=== PATIENT | female | born 1980 | race American Indian/Alaskan Native ===

== ENCOUNTER 2017-01-16 17:39 | Inpatient (IN) | payer OTHER, MEDICAID ==
[2017-01-16] MEDS ORDERED: POLYCILLIN/NS 2 GM/100 ML 2 GM/100 ML BAG IV ONE (18:34)
[2017-01-16] MEDS ORDERED: LACTATED RINGERS 1,000 ML IV SCH (19:00)
[2017-01-16] MEDS ORDERED: NARCAN 0.4 MG/1 ML IV PRN (19:29)
[2017-01-16] MEDS ORDERED: BRETHINE SUB-Q PRN (19:29)
[2017-01-16] MEDS ORDERED: BRETHINE IVP PRN (19:29)
[2017-01-16] MEDS ORDERED: MINERAL OIL PO PRN (19:29)
[2017-01-16] MEDS ORDERED: ZOFRAN IV PRN (19:29)
[2017-01-16] MEDS ORDERED: XYLOCAINE 2% INFILTRATI ONE (19:29)
[2017-01-16] MEDS ORDERED: ePHEDrine SULFATE IV PRN (19:29)
--- NOTE | 2017-01-16 19:55 | History and Physical Report ---
History of Present Illness Date of examination: 01/16/17 Date of admission: 01/16/17 19:42 Chief complaint: srom clear fluid at 1500 History of present illness: 36 yo at 39 weeks was initially scheduled for a IOL tonight at 1999. She stated that she had leaking at 1500. She came to triage and was noted to be grossly ruptured. 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 reported by triage nurse GDMA1 on glyburide 2.5mg QHS Asthma-stable ( no hemabate) GBS + will begin amp 2g for prophylaxis AMA- under care in conjunction with [facility] Smoker- s/p counseling labs O+ Antibody + H/H 12.3/38.4 Rubella Imm Pap nl 10/27 RPR NR Hep neg HIV neg PLT 506 HSV2 positive CF neg US single viable IUP 7 weeks EDC was changed 01/21/17 quad neg 1hr glucose 170 3hr 86,200,163,110 H/H 10.6/32.9 PLt 402 HIV/RPR neg/neg clam neg rocky neg GBS Positive Past History Past Medical History: asthma, high cholesterol Past Surgical History: no surgical history [employer] [employer] History: herpes Family/Genetic History: diabetes (Father), heart disease (Grandmotehr maternal Grandmother paternal), hypertension (Grandmother paternal), cancer (breast Grandmother paternal), other (hypercholesterolemia Grandmother paternal) Social history: smoking - Obstetrical History Expected Date of Delivery: 01/21/17 Actual Gestation: 39 Week(s) 3 Day(s) : 1 Para: 0 Hx # Term Pregnancies: 0 Number of Pregnancies: 0 Spontaneous Abortions: 0 Induced : 0 Number of Living Children: 0 Medications and Allergies Allergies Allergy/AdvReac Type Severity Reaction Status Date / Time No Known Allergies Allergy Verified 01/16/17 17:54 Home Medications Medication Instructions Recorded Confirmed Last Taken Type Vit No.87/Iron/FA/Dha 1 tab PO DAILY 01/16/17 01/16/17 01/16/17 09:00 History [Prenate Mini Softgel] 1 glyBURIDE [Glyburide] 3 tab PO HS 01/16/17 01/16/17 01/15/17 21:00 History 1 Active Meds: Active Medications Ephedrine Sulfate (Ephedrine Sulfate) 10 mg IV Q2M PRN PRN Reason: Hypotension Stop: 01/16/17 19:34 Fentanyl (Sublimaze) 100 mcg IV Q2H PRN PRN Reason: Labor Pain Ampicillin Sodium (Polycillin/Ns 1 Gm/50 Ml) 1 gm in 50 mls @ 100 mls/hr IV Q4HR [facility]ST[place]NA PRN Reason: Protocol Lactated Ringer's (Lactated Ringers) 1,000 mls @ 125 mls/hr IV DIRECT [facility] Oxytocin/Sodium Chloride (Pitocin/Ns 30 Unit/500ml) 30 units in 500 mls @ 2 mls /hr IV TITR [facility]NA PRN Reason: Protocol Lactated Ringer's (Lactated Ringers) 1,000 mls @ 125 mls/hr IV DIRECT [place] Oxytocin/Sodium Chloride (Pitocin/Ns 20 Unit/1000ml Drip) 20 units in 1,000 mls @ 125 mls/hr IV DIRECT [place] Oxytocin/Sodium Chloride (Pitocin/Ns 30 Unit/500ml) 30 units in 500 mls @ 1 mls /hr IV TITR [facility]RISTIANA; 1 MILLIUNITS/MIN PRN Reason: Protocol Oxytocin/Sodium Chloride (Pitocin/Ns 30 Unit/500ml) 30 units in 500 mls @ 0 mls /hr IV TITR CHRISTIANA; As Directed PRN Reason: Protocol Lidocaine (Xylocaine 2%) 20 ml INFILTRATI ONCE ONE Stop: 01/16/17 19:30 Mineral Oil (Mineral Oil) 30 ml PO QHS PRN PRN Reason: Constipation Naloxone HCl (Narcan 0.4 Mg/1 Ml) 0.1 mg IV Q2MIN PRN PRN Reason: Res Rate </= 8 or 02 SAT < 92% Ondansetron HCl (Zofran) 4 mg IV Q8H PRN PRN Reason: Nausea And Vomiting Terbutaline Sulfate (Brethine) 0.25 mg SUB-Q ONCE PRN PRN Reason: Hyperstimulation/Hypertonicity Stop: 01/16/17 19:30 Terbutaline Sulfate (Brethine) 0.25 mg IVP ONCE PRN PRN Reason: Hyperstimulation/Hypertonicity Stop: 01/16/17 19:30 Review of Systems All systems: negative Constitutional: weight gain Eyes: deferred Ears, nose, mouth and throat: deferred Breasts: deferred Genitourinary: normal appearance, vaginal bleeding, leakage of fluid, no genital sores Rectal Exam: deferred Integumentary: deferred - Vital Signs Vital signs: Vital Signs Pulse BP 100 H 125/73 01/16/17 18:13 01/16/17 18:13 Temp Pulse Resp BP Pulse Ox 98.3 F 100 H 20 125/73 01/16/17 18:30 01/16/17 18:13 01/16/17 18:30 01/16/17 18:13 - Physical Exam Breasts: Positive: deferred Cardiovascular: Regular rate, Normal S1, Normal S2 Lungs: Positive: Clear to auscultation, Normal air movement Abdomen: Positive: normal appearance, soft, normal bowel sounds Genitourinary (Female): Positive: normal external genitalia, normal perenium Vagina: Positive: normal moisture Cervix: Negative: lesion Uterus: Positive: enlarged, normal contour Adnexa: both: normal Anus/Rectum: Positive: normal perianal skin, heme negative Extremities: Positive: normal Deep Tendon Reflex Grade: Normal +2 - Obstetrical FHR: category 1 Uterine Contraction Monitor Mode: External Cervical Dilatation: 1 Uterine Contraction Pattern: Regular Uterine Tone Measurement Phase: Contraction Uterine Contraction Intensity: Mild Results Result Diagrams: 01/16/17 20:44 All other labs normal. Assessment and Plan HD#1 SROM, term, GDMA1 --admit to labor and delivery ---initiate abx GBS + ( ampicillin) ---confirm presentation with US ---fs regularly --ivf started --initial labs --initiate pitocicn IOL --expect vaginal delivery continue glybruide
[2017-01-16] MEDS ORDERED: PITOCin/NS 20 UNIT/1000ML DRIP 20 UNITS/1,000 ML BAG IV SCH (20:00)
[2017-01-16] MEDS ORDERED: PITOCin/NS 30 UNIT/500ML 30 UNITS/500 ML BAG IV SCH ×2 (20:00)
[2017-01-16] MEDS: LACTATED RINGERS 1,000 ML IV SCH (21:00)
[2017-01-16 21:10] LABS: Hematocrit 35.4 % (30.3-42.9); Hemoglobin 11.4 gm/dl (10.1-14.3); Mean Corpuscular HGB Conc 32 % (30-34); Mean Corpuscular Hemoglobin 24 pg (28-32); Mean Corpuscular Volume 76 fl (79-97); Platelet Count 326 K/mm3 (140-440); Red Blood Count 4.67 M/mm3 (3.65-5.03); Red Cell Distribution Width 16.1 % (13.2-15.2); White Blood Count 8.1 K/mm3 (4.5-11.0)
[2017-01-16] MEDS ORDERED: CYTOTEC PO PRN (22:27)
[2017-01-16] MEDS ORDERED: POLYCILLIN/NS 1 GM/50 ML 1 GM/50 ML BAG IV SCH (23:45)
[2017-01-17] MEDS: SUBLIMAZE IV PRN ×3 (05:15→07:25)
[2017-01-17] MEDS: PITOCin/NS 30 UNIT/500ML 30 UNITS/500 ML BAG IV SCH ×6 (05:27→10:34)
[2017-01-17] MEDS: LACTATED RINGERS 1,000 ML IV SCH ×3 (05:27→09:53)
--- NOTE | 2017-01-17 07:32 | Ultrasound Report ---
OB LIMITED Clinical indication: Confirm presentation. Technique: Transabdominal ultrasound with Doppler interrogation. Gestation: Single Position: Cephalic Heart Rate: 141 BPM
[2017-01-17] MEDS ORDERED: DIABETA PO SCH (08:00)
[2017-01-17] MEDS ORDERED: ePHEDrine SULFATE ONE (08:05)
--- NOTE | 2017-01-17 08:06 | Progress Note ---
Assessment and Plan O: BS @ 0630 116 A: IUP at 39.3 weeks gestation A1 diabetic +GBS, adequate treatment Day one induction SROM x 17 hours, approaching prolonged ROM AMA Morbid obesity Active labor P: IUPC, FSE Epidural Active Russ't Subjective - Subjective Date of service: 01/17/17 Patient reports: new complaints (Pain with contractions, 08/22, recently medicated. Bolus in process for epidural), movement normal, contractions, no vaginal bleeding Objective - Vital Signs Vital Signs: Vital Signs - 12hr 01/16/17 01/16/17 01/16/17 20:13 20:18 20:23 Temperature Pulse Rate 99 H 104 H 91 H Respiratory Rate Blood Pressure O2 Sat by Pulse 96 96 97 Oximetry 01/16/17 01/16/17 01/16/17 20:28 20:33 20:37 Temperature Pulse Rate 98 H 99 H 56 L Respiratory Rate Blood Pressure O2 Sat by Pulse 97 96 79 L Oximetry 01/16/17 01/16/17 01/16/17 20:38 20:43 20:48 Temperature Pulse Rate 63 95 H 97 H Respiratory Rate Blood Pressure O2 Sat by Pulse 80 L 96 96 Oximetry 01/16/17 01/16/17 01/16/17 20:52 20:58 21:03 Temperature Pulse Rate 98 H 99 H 104 H Respiratory Rate Blood Pressure O2 Sat by Pulse 97 97 97 Oximetry 01/16/17 01/16/17 01/16/17 21:08 21:13 21:18 Temperature Pulse Rate 101 H 99 H 103 H Respiratory Rate Blood Pressure O2 Sat by Pulse 96 97 97 Oximetry 01/16/17 01/16/17 01/16/17 21:23 21:28 22:35 Temperature Pulse Rate 94 H 94 H 96 H Respiratory Rate Blood Pressure O2 Sat by Pulse 97 96 95 Oximetry 01/16/17 01/16/17 01/16/17 22:40 22:45 22:50 Temperature Pulse Rate 97 H 96 H 92 H Respiratory Rate Blood Pressure O2 Sat by Pulse 96 96 93 Oximetry 01/16/17 01/16/17 01/16/17 22:55 23:00 23:01 Temperature 98.8 F Pulse Rate 97 H 98 H Respiratory 18 Rate Blood Pressure O2 Sat by Pulse 96 79 L Oximetry 01/16/17 01/16/17 01/16/17 23:02 23:07 23:12 Temperature Pulse Rate 97 H 94 H 90 Respiratory Rate Blood Pressure O2 Sat by Pulse 91 97 96 Oximetry 01/16/17 01/16/17 01/16/17 23:20 23:25 23:30 Temperature Pulse Rate 98 H 91 H 89 Respiratory Rate Blood Pressure O2 Sat by Pulse 96 96 96 Oximetry 01/16/17 01/16/17 01/16/17 23:35 23:40 23:45 Temperature Pulse Rate 93 H 92 H 95 H Respiratory Rate Blood Pressure O2 Sat by Pulse 97 95 97 Oximetry 01/16/17 01/16/17 01/17/17 23:50 23:55 00:00 Temperature Pulse Rate 93 H 94 H 98 H Respiratory Rate Blood Pressure O2 Sat by Pulse 97 96 96 Oximetry 01/17/17 01/17/17 01/17/17 00:05 00:10 01:00 Temperature 97.0 F L Pulse Rate 93 H 90 Respiratory 18 Rate Blood Pressure O2 Sat by Pulse 95 96 Oximetry 01/17/17 01/17/17 01/17/17 02:11 02:16 02:20 Temperature Pulse Rate 112 H 103 H 117 H Respiratory Rate Blood Pressure O2 Sat by Pulse 95 99 97 Oximetry 01/17/17 01/17/17 01/17/17 02:25 02:30 02:35 Temperature Pulse Rate 106 H 104 H 104 H Respiratory Rate Blood Pressure O2 Sat by Pulse 99 98 99 Oximetry 01/17/17 01/17/17 01/17/17 02:40 02:45 02:51 Temperature Pulse Rate 105 H 106 H 104 H Respiratory Rate Blood Pressure O2 Sat by Pulse 99 99 98 Oximetry 01/17/17 01/17/17 01/17/17 02:56 03:00 03:05 Temperature Pulse Rate 105 H 103 H 105 H Respiratory Rate Blood Pressure O2 Sat by Pulse 99 99 99 Oximetry 01/17/17 01/17/17 01/17/17 03:10 03:17 03:22 Temperature Pulse Rate 105 H 103 H 103 H Respiratory Rate Blood Pressure O2 Sat by Pulse 99 100 99 Oximetry 01/17/17 01/17/17 01/17/17 03:27 03:32 03:45 Temperature Pulse Rate 104 H 102 H 118 H Respiratory Rate Blood Pressure 116/62 O2 Sat by Pulse 99 99 Oximetry 01/17/17 01/17/17 01/17/17 05:09 05:24 05:42 Temperature Pulse Rate 105 H 108 H Respiratory 18 Rate Blood Pressure 128/73 O2 Sat by Pulse 94 Oximetry 01/17/17 01/17/17 01/17/17 05:47 05:52 05:57 Temperature Pulse Rate 108 H 105 H 107 H Respiratory Rate Blood Pressure O2 Sat by Pulse 94 99 98 Oximetry 01/17/17 01/17/17 01/17/17 06:02 06:07 06:09 Temperature Pulse Rate 108 H 107 H 108 H Respiratory Rate Blood Pressure 125/68 O2 Sat by Pulse 99 99 Oximetry 01/17/17 01/17/17 01/17/17 06:12 06:30 06:35 Temperature Pulse Rate 107 H 109 H 109 H Respiratory Rate Blood Pressure O2 Sat by Pulse 98 99 99 Oximetry 01/17/17 01/17/17 01/17/17 06:40 06:45 07:01 Temperature Pulse Rate 118 H 113 H 114 H Respiratory Rate Blood Pressure O2 Sat by Pulse 98 99 99 Oximetry 01/17/17 01/17/17 01/17/17 07:06 07:11 07:16 Temperature Pulse Rate 113 H 115 H 114 H Respiratory Rate Blood Pressure O2 Sat by Pulse 99 96 95 Oximetry 01/17/17 01/17/17 01/17/17 07:19 07:20 07:21 Temperature Pulse Rate 114 H 112 H 121 H Respiratory Rate Blood Pressure 140/78 137/75 O2 Sat by Pulse 96 Oximetry 01/17/17 01/17/17 01/17/17 07:25 07:33 07:38 Temperature Pulse Rate 111 H 109 H Respiratory 18 Rate Blood Pressure O2 Sat by Pulse 99 99 Oximetry 01/17/17 01/17/17 01/17/17 07:43 07:48 07:53 Temperature Pulse Rate 109 H 110 H 108 H Respiratory Rate Blood Pressure O2 Sat by Pulse 99 99 100 Oximetry 01/17/17 08:00 Temperature Pulse Rate 109 H Respiratory Rate Blood Pressure O2 Sat by Pulse 99 Oximetry - Exam Lungs: Normal air movement Abdomen: Present: normal appearance, other (obese, enlarged) Uterus: Present: normal FHR: category 1 Uterine Contraction Monitor Mode: External Cervical Dilatation: 4 Cervical Effacement Percentage: 100 station: -1 Uterine Contraction Frequency (min): 2 Uterine Contraction Duration: 50 Uterine Contraction Pattern: Regular Uterine Contraction Intensity: Strong/Firm Uterine Tone Measurement (Intensity): 90 - Labs Labs: Abnormal Labs 01/16/17 01/16/17 01/17/17 20:44 20:50 06:37 MCV 76 L MCH 24 L RDW 16.1 H POC Glucose 116 H Crossmatch See Detail Laboratory Results - last 24 hr 01/16/17 01/16/17 01/16/17 19:40 20:44 20:50 WBC 8.1 RBC 4.67 Hgb 11.4 Hct 35.4 MCV 76 L MCH 24 L MCHC 32 RDW 16.1 H Plt Count 326 POC Glucose 71 Blood Type O POSITIVE Antibody Screen Positive Antibody Identification Anti-M Crossmatch See Detail 01/17/17 06:37 WBC RBC Hgb Hct MCV MCH MCHC RDW Plt Count POC Glucose 116 H Blood Type Antibody Screen Antibody Identification Crossmatch
[2017-01-17] MEDS ORDERED: ePHEDrine SULFATE IV PRN (09:15)
--- NOTE | 2017-01-17 09:15 | Anesthesia Consultation ---
Anesthesia Consult and Med Hx Date of service: 01/17/17 - Airway Anesthetic Teeth Evaluation: Good ROM Head & Neck: Adequate Mental/Hyoid Distance: Adequate Mallampati Class: Class II - Pre-Operative Health Status ASA Pre-Surgery Classification: ASA2 Proposed Anesthetic Plan: Epidural, Spinal - Pulmonary Hx Asthma: Yes COPD: No Hx Pneumonia: No - Cardiovascular System Hx Hypertension: No - Central Nervous System Hx Seizures: No Hx Psychiatric Problems: No - Endocrine Hx Renal Disease: No Hx Non-Insulin Dependent Diabetes: Yes Hx Hypothyroidism: No Hx Hyperthyroidism: No - Hematic Hx Anemia: No Hx Sickle Cell Disease: No - Other Systems Hx Alcohol Use: No Hx Obesity: Yes (BMI 38.3)
[2017-01-17] MEDS ORDERED: fentaNYL-BUPIV 2 MCG/ML-0.125% 200 MCG/100 ML BAG EPIDURAL SCH (10:00)
--- NOTE | 2017-01-17 12:05 | Procedure Note ---
OB Delivery Note - Delivery Date of Delivery: 01/17/17 (9-7oz male @ 1137) Surgeon: THIEN PINA Estimated blood loss: 300cc - Vaginal Delivery presentation: vertex Delivery position: OA Intrapartum events: other(please specify) (induction, A1 diabetic, prolonged ROM , +GBS, adaquate treatment) Delivery induction: misoprostol Delivery augmentation: pitocin Delivery monitor: external FHT, external uterine, internal FHT, internal uterine Route of delivery: Delivery placenta: spontaneous Delivery cord: 3 umbilical vessels Episiotomy: none Delivery laceration: 1st degree (First degree laceration, approximated with interrupted sutures, and right periurethal) Delivery repair: vicryl (3.[address]) Anesthesia: epidural - Infant A at 1 minute: 7 at 5 minutes: 9 Infant Gender: Male ( viable male, stimulated to cry, slow to respond, NICU called and infant to warmer for evaluation, bulb suction and stimulation only. Cord blood collected. Spont. placenta, Pitocin infusing, Fundus messaged firm, bleeding moderate and progressed to small. Repair of laceration as noted. Mom and ifant stable and bonding.)
[2017-01-17] MEDS ORDERED: TYLENOL PO PRN (12:08)
[2017-01-17] MEDS ORDERED: BENADRYL PO PRN (12:08)
[2017-01-17] MEDS ORDERED: LANSINOH TP PRN (12:08)
[2017-01-17] MEDS ORDERED: TUCKS PAD TP PRN (12:08)
[2017-01-17] MEDS ORDERED: DULCOLAX PR PRN (12:08)
[2017-01-17] MEDS ORDERED: MILK OF MAGNESIA PO PRN (12:08)
[2017-01-17] MEDS ORDERED: DERMOPLAST TP PRN (12:08)
[2017-01-17] MEDS ORDERED: PHENERGAN PR PRN (12:08)
[2017-01-17] MEDS ORDERED: NORCO 5/325 PO PRN (12:08)
[2017-01-17] MEDS ORDERED: SODIUM CHLORIDE FLUSH SYRINGE 10 ML IV NR (13:00)
[2017-01-17] MEDS: MOTRIN PO SCH ×2 (18:15→23:26)
[2017-01-18 01:35] LABS: Hematocrit 28.5 % (30.3-42.9); Hemoglobin 9.1 gm/dl (10.1-14.3)
[2017-01-18] MEDS: MOTRIN PO SCH ×4 (05:40→23:03)
--- NOTE | 2017-01-18 10:12 | Progress Note ---
Assessment and Plan A: PPD#1 s/p at term GDM A2 Asymptomatic anemia P: Routine care. Anticipate discharge tomorrow. Subjective - Subjective Date of service: 01/18/17 Principal diagnosis: s/p at term, GDM A2 Interval history: Pt with no overnight events. Patient reports: appetite normal, voiding normally, ambulating normally : doing well Objective - Vital Signs Latest vital signs: Vital Signs Temp Pulse Pulse Resp BP BP Pulse Ox 01/18/17 07:57 98.1 F 86 20 116/66 01/18/17 00:00 98.6 F 71 22 128/62 01/17/17 20:10 98.6 F 84 22 129/58 01/17/17 15:51 98.1 F 94 H 20 124/64 01/17/17 13:50 98.4 F 80 20 119/68 01/17/17 12:51 107 H 128/61 01/17/17 12:21 121 H 128/78 01/17/17 11:57 170 H 30 H 01/17/17 11:55 98.8 F 114 H 114/58 114/58 01/17/17 11:52 113 H 91/45 01/17/17 11:11 113 H 100 01/17/17 11:06 109 H 100 01/17/17 11:01 110 H 100 01/17/17 10:56 107 H 100 01/17/17 10:52 111 H 127/78 01/17/17 10:51 109 H 100 01/17/17 10:46 110 H 100 01/17/17 10:41 107 H 100 01/17/17 10:36 106 H 100 01/17/17 10:31 123 H 100 01/17/17 10:26 115 H 100 01/17/17 10:21 108 H 126/65 100 01/17/17 10:16 110 H 100 Intake and Output 01/17/17 01/18/17 01/18/17 22:59 06:59 14:59 Intake Total 1500 900 Output Total 850 800 Balance 650 100 Intake: IV 500 PITOCin/NS 20 UNIT/1000ML 500 DRIP 20 units In 1,000 ml @ 125 mls/hr IV DIRECT CHRISTIANA Rx#:[id number] Oral 240 500 Intake, Free Water 760 400 Output: Urine 850 800 Void 850 800 Other: Total, Intake Amount 240 500 Total, Output Amount 400 800 Voiding Method Toilet # Voids Void 1 1 - Exam Breasts: Present: deferred Cardiovascular: Present: Regular rate Lungs: Present: Clear to auscultation Abdomen: Present: soft (obese ) Uterus: Present: fundal height at umbilicus Extremities: Present: normal - Labs Labs: Abnormal lab results 01/18/17 Range/Units 01:06 Hgb 9.1 L (10.1-14.3) gm/dl Hct 28.5 L D (30.3-42.9) %
--- NOTE | 2017-01-18 10:13 | Discharge Summary ---
Providers - Providers Date of Admission: 01/16/17 19:42 Date of discharge: 01/18/17 Attending physician: WILLIAM ARRIETA MD Primary care physician: WILLIAM ARRIETA MD Hospitalization Reason for admission: rupture of membranes Delivery: Procedure details: Please see delivery note. Episiotomy: none Laceration: 1st degree complications: none Discharge diagnosis: IUP at term delivered baby: male Hospital course: Patient was admitted with spontaneous ruptured membranes. She ultimately went on to have a spontaneous vaginal delivery which she tolerated well. Her course was complicated. She met discharge criteria and was permitted #2 was discharged home. She'll follow-up in the office in 4 weeks for examination and will have a 2 hour 75 g glucose tolerance test at least 6 weeks . Condition at discharge: Stable Disposition: DISCHARGED TO HOME OR SELFCARE - Discharge Diagnoses (1) Term of male Status: Acute (2) Obesity affecting Status: Acute (3) Gestational diabetes mellitus (GDM) affecting Status: Acute Plan - Discharge Medications Prescriptions: Ferrous Sulfate [Feosol 325 MG tab] 325 mg PO BID #60 tablet Ibuprofen [Motrin] 800 mg PO Q8HR PRN #30 tablet PRN Reason: Pain oxyCODONE /ACETAMINOPHEN [Percocet 5/325] 1 tab PO Q6HR PRN #30 tablet PRN Reason: Pain Vit-Fe Fumar-FA [ Vitamin] 1 tab PO QDAY #30 tablet - Provider Discharge Summary Activity: no sex for 6 weeks, no heavy lifting 4 weeks, no strenuous exercise Diet: routine Instructions: routine Additional instructions: [] Smoking cessation referral if applicable(refer to patient education folder for contact #) [] Refer to [facility] Booklet Call your doctor immediately for: * Fever > 100.5 * Heavy vaginal bleeding ( >1 pad per hour) * Severe persistent headache * Shortness of breath * Reddened, hot, painful area to leg or breast * Drainage or odor from incision. * Keep incision clean and dry at all times and follow doctor's instructions regarding bathing/showering Please schedule your son's circumcision before he is one month old. - Follow up plan Follow up: LUPE GOOD MD [Staff Physician] - 02/21/17 ( exam )
[2017-01-18] MEDS ORDERED: M-M-R II VACCINE SUB-Q ONE (12:08)
[2017-01-18] MEDS ORDERED: BOOSTRIX IM ONE (12:08)
[2017-01-18] MEDS: PRENATAL VITAMIN PO SCH (12:40)
--- NOTE | 2017-01-18 15:06 | Progress Note ---
Subjective Date of service: 01/18/17 Principal diagnosis: s/p at term, GDM A2 Interval history: 1st day after normal vaginal delivery Patient is in the bed, comfortable. Pain is well controlled with pain meds. Ambulated well. No residual neurological deficit. No anesthesia complications Objective - Constitutional Vitals: Vital Signs - 12hr 01/18/17 07:57 Temperature 98.1 F Pulse Rate [ 86 From Monitor] Respiratory 20 Rate Blood Pressure 116/66 [Right Arm] - Labs CBC & Chem 7: 01/18/17 01:06 Labs: Abnormal lab results 01/18/17 Range/Units 01:06 Hgb 9.1 L (10.1-14.3) gm/dl Hct 28.5 L D (30.3-42.9) %
[2017-01-19] MEDS: MOTRIN PO SCH (05:29)
[2017-01-19] MEDS: PRENATAL VITAMIN PO SCH (09:16)
[2017-01-19 10:01] VITALS: BP 140/88
== END 2017-01-19 12:00 | disposition home or self-care (01) | DRG 775 ==
LOC: TRG 17:39 → LD 19:42 → TRG 19:42 → OB 01-17 14:54
PROVIDERS: ADMIT Obstetrics & Gynecology; ATTEND Obstetrics & Gynecology
PROC: 10E0XZZ Delivery of Products of Conception, External Approach (ICD-10-PCS; principal; 2017-01-17)
PROC: 0HQ9XZZ Repair Perineum Skin, External Approach (ICD-10-PCS; 2017-01-17)
PROC: 00HU33Z Insertion of Infusion Device into Spinal Canal, Percutaneous Approach (ICD-10-PCS; 2017-01-17)
PROC: 3E0P7GC Introduction of Other Therapeutic Substance into Female Reproductive, Via Natural or Artificial Opening (ICD-10-PCS; 2017-01-17)
PROC: 3E0R3CZ (ICD-10-PCS; 2017-01-17)
PROC: 10H07YZ Insertion of Other Device into Products of Conception, Via Natural or Artificial Opening (ICD-10-PCS; 2017-01-17)
DX: O42.92 Full-term premature rupture of membranes, unspecified as to length of time between rupture and onset of labor (principal); O99.824 Streptococcus B carrier state complicating childbirth; O99.214 Obesity complicating childbirth; O99.52 Diseases of the respiratory system complicating childbirth; J45.909 Unspecified asthma, uncomplicated; O99.334 Smoking (tobacco) complicating childbirth; F17.200 Nicotine dependence, unspecified, uncomplicated; E66.01 Morbid (severe) obesity due to excess calories; O24.425 Gestational diabetes mellitus in childbirth, controlled by oral hypoglycemic drugs; O70.0 First degree perineal laceration during delivery; Z37.0 Single live birth; Z3A.39 39 weeks gestation of pregnancy; Z83.3 Family history of diabetes mellitus; Z82.49 Family history of ischemic heart disease and other diseases of the circulatory system; Z80.3 Family history of malignant neoplasm of breast; Z68.38 Body mass index [BMI] 38.0-38.9, adult; O09.513 Supervision of elderly primigravida, third trimester; O98.519 Other viral diseases complicating pregnancy, unspecified trimester; B00.9 Herpesviral infection, unspecified; Z71.6 Tobacco abuse counseling; O90.81 Anemia of the puerperium; D64.9 Anemia, unspecified
CPT/HCPCS: 36415; 59025; 76815; 82962; 85014; 85018; 85027; 86850; 86870; 86900; 86901; 86922; 99211; A6250; G0463; J0290; J2590; J3010; J7120

== ENCOUNTER 2017-02-21 13:58 | Inpatient (IN) | payer OTHER, MEDICAID ==
[2017-02-21] MEDS ORDERED: CALCIUM GLUCONATE IV ONE (14:03)
[2017-02-21] MEDS ORDERED: APRESOLINE IV PRN (14:03)
[2017-02-21] MEDS ORDERED: MAGNESIUM SULFATE 4GM/100ML 4 GM/100 ML BAG IV ONE (17:00)
[2017-02-21] MEDS ORDERED: MAGNESIUM SULFATE 40GM/1000ML 40 GM/1,000 ML BAG IV SCH (17:00)
[2017-02-21] MEDS ORDERED: CALCIUM GLUCONATE 1,000 MG in NACL 0.9% 100 ML IV ONE (18:00)
[2017-02-21] MEDS: LACTATED RINGERS 1,000 ML IV SCH (18:58)
[2017-02-21 19:29] LABS: Hematocrit 36.2 % (30.3-42.9); Hemoglobin 11.5 gm/dl (10.1-14.3); Mean Corpuscular HGB Conc 32 % (30-34); Mean Corpuscular Hemoglobin 24 pg (28-32); Mean Corpuscular Volume 76 fl (79-97); Platelet Count 387 K/mm3 (140-440); Red Blood Count 4.78 M/mm3 (3.65-5.03); Red Cell Distribution Width 15.4 % (13.2-15.2); White Blood Count 5.6 K/mm3 (4.5-11.0)
[2017-02-21 19:42] LABS: Alanine Aminotransferase 7 units/L (7-56); Lactate Dehydrogenase 149 units/L (91-180); Uric Acid 6.4 mg/dL (3.5-7.6)
[2017-02-21 20:32] LABS: Bilirubin,Urine NEG (Negative); Blood,Urine NEG (Negative); Ketones,Urine NEG (Negative); Leukocyte Esterase,Urine NEG (Negative); Nitrite,Urine NEG (Negative); Protein,Urine <15 mg/dL mg/dL (Negative); RBC,Urine < 1.0 /HPF (0.0-6.0); Urobilinogen,Urine < 2.0 mg/dL (<2.0); WBC,Urine < 1.0 /HPF (0.0-6.0)
--- NOTE | 2017-02-21 21:15 | Admit Criteria Form ---
Admission Criteria Documentation: HYPERTENSIVE DISORDERS OF Clinical Indications for Admission to Inpatient Care (Place 'X' for any and all applicable criteria): Admission is indicated for ANY ONE of the following (1)(2)(3)(4)(5): [ ]I. Eclampsia[A][B] [ X]II. Preeclampsia with severe features (ie, severe preeclampsia) indicated by ANY ONE of the following[B][C]: [ ]a) SBP greater than or equal to 160 mm Hg or DBP greater than or equal to 110 mm Hg on 2 occasions at least 4 hours apart while the patient is at bed rest (unless antihypertensive therapy is initiated before this time) [ ]b) Platelet count less than 100,000/mm3 (100 x109/L) [ ]c) Impaired liver function as indicated by ANY ONE of the following: [ ]i. Elevation of liver enzymes (eg, SGOT, SGPT) to twice normal concentration [ ]ii. Severe persistent right upper quadrant or epigastric pain unresponsive to medication and not accounted for by alternative diagnosis [ ]d) Progressive renal insufficiency indicated by ANY ONE of the following: [ ]i. Serum creatinine concentration greater than 1.1 mg/dL (97 micromoles/L) [ ]ii. Doubling (from baseline) of serum creatinine concentration in the absence of other renal disease [ ]e) Pulmonary edema [ X]f) Cerebral or visual symptoms (eg, headache, Altered mental status, changes in vision) [ ]III. Delivery planned due to nonsevere preeclampsia as indicated by ALL of the following: [ ]a) Nonsevere preeclampsia present as indicated by ALL of the following: [ ]i. Woman at 20 or more weeks' gestation [ ]ii. New-onset SBP greater than or equal to 140 mm Hg but less than 160 mm Hg or DBP greater than or equal to 90 mm Hg but less than 110 mm Hg on 2 occasions at least 4 hours apart [ ]iii. Proteinuria present as indicated by ANY ONE of the following: [ ]A. Urinary protein excretion greater than or equal to 300 mg per 24-hour collection (or this amount extrapolated from a shorter timed collection) [ ]B. Protein/creatinine ratio greater than or equal to 0.3 (measured in mg/dL) [ ]b) Delivery indicated due to ANY ONE of the following: [ ]i. Gestational age of 37 0/7 weeks or more [ ]ii. Gestational age of 34 0/7 weeks to 36 6/7 weeks and ANY ONE of the following: [ ]A. Progressive labor or rupture of membranes [ ]B. Abnormal biophysical profile [ ]C. Suspected abruptio placentae [ ]D. Ultrasound estimate of weight less than 5th percentile [ ]E. Other indication for delivery [ ]IV. Delivery planned due to gestational hypertension[D] because of ANY ONE of the following: [ ]a) Delivery indicated because gestational age of 37 0/7 weeks or more has been reached [ ]b) Gestational age of 34 0/7 weeks to 36 6/7 weeks for which delivery is indicated because of ANY ONE of the following: [ ]i. Progressive labor or rupture of membranes [ ]ii. Abnormal biophysical profile [ ]iii. Suspected abruptio placentae [ ]iv. Ultrasound estimate of weight less than 5th percentile [ ]v. Other indication for delivery [ ]V. Hypertension of any category[E] during with acute end organ damage as indicated by ANY ONE of the following: [ ]a) Hypertensive encephalopathy (eg, Altered mental status that is severe or persistent )(11) [ ]b) Cerebral infarction [ ]c) Intracranial hemorrhage [ ]d) Myocardial ischemia or infarction [ ]e) Pulmonary edema [ ]f) Aortic dissection [ ]g) Seizure [ ]h) Papilledema [ ]i) Microangiopathic hemolytic anemia [ ]j) Visual loss [ ]k) Acute renal failure [ ]) Hypertension during with evidence of compromise as indicated by ANY ONE of the following: [ ]a) Abnormal heart tones [ ]b) Abnormal stress test [ ]c) Abnormal biophysical profile [ ]VII) patient requires inpatient control of blood pressure indicated by (see Hypertensive Disorders of : Observation Care [facility] guideline as appropriate) ALL of the following: [ ]a) SBP is greater than or equal to 160 mm Hg or DBP is greater than or equal to 105 mm Hg [ ]b) Blood pressure cannot be reduced below these levels with outpatient or observation care treatment (eg, oral medications not effective) Extended stay beyond goal length of stay may be needed for : [ ]a) Eclampsia [ ]b) Ongoing compromise [ ]c) Complications of hypertensive disorders of [ ]d) Active comorbidities (eg, heart failure, poorly controlled diabetes, renal insufficiency) [ ]e) Persistent hypertension [ ]f) Delivery planned The original [facility] [employer] content created by [employer] has been revised. The portions of the content which have been revised are identified through the use of italic text or in bold, and [employer]te[employer] has neither reviewed nor approved the modified material. All other unmodified content is copyright [facility]. Please see references footnoted in the original [facility] [employer] edition 2016. Admission Criteria Met: Yes
--- NOTE | 2017-02-21 21:25 | History and Physical Report ---
History of Present Illness Date of examination: 02/21/17 Date of admission: 02/21/17 16:38 Chief complaint: sent from clinic for elevated blood pressure History of present illness: Pt is a 37 year old -Malag[place] female s/p on 01/17/17 and complicated by advanced maternal age, obesity, ad gestational diabetes presented to the office today for routine examination and was found to have blood pressures 150s/100s. She presently reports a mild headache but denies blurry vision or RUQ pain. She was subsequently sent to the hospital for magnesium prophylaxis of preeclampsia. Past History Past Medical History: asthma, high cholesterol, other (obesity) Past Surgical History: no surgical history [employer] History: herpes Family/Genetic History: diabetes, heart disease, hypertension, cancer Social history: no significant social history, - Obstetrical History : 1 Para: 1 Hx # Term Pregnancies: 1 Number of Pregnancies: 0 Spontaneous Abortions: 0 Induced : 0 Number of Living Children: 1 Medications and Allergies Allergies Allergy/AdvReac Type Severity Reaction Status Date / Time No Known Allergies Allergy Verified 01/16/17 17:54 Home Medications Medication Instructions Recorded Confirmed Last Taken Type Vit No.87/Iron/FA/Dha 1 tab PO DAILY 01/16/17 01/16/17 01/16/17 09:00 History [Prenate Mini Softgel] 1 glyBURIDE [Glyburide] 3 tab PO HS 01/16/17 01/16/17 01/15/17 21:00 History 1 Ferrous Sulfate [Feosol 325 MG tab] 325 mg PO BID #60 tablet 01/18/17 Unknown Rx Ibuprofen [Motrin] 800 mg PO Q8HR PRN #30 tablet 01/18/17 Unknown Rx Vit-Fe Fumar-FA [ 1 tab PO QDAY #30 tablet 01/18/17 Unknown Rx Vitamin] oxyCODONE /ACETAMINOPHEN [Percocet 1 tab PO Q6HR PRN #30 tablet 01/18/17 Unknown Rx 5/325] Methylergonovine [Methergine] 0.2 mg PO Q6H #4 tablet 01/21/17 Unknown Rx Active Meds: Active Medications Hydralazine HCl (Apresoline) 5 mg IV Q30MIN PRN PRN Reason: Hypertension Lactated Ringer's (Lactated Ringers) 1,000 mls @ 125 mls/hr IV DIRECT CHRISTIANA Last Admin: 02/21/17 18:58 Dose: 125 mls/hr Magnesium Sulfate (Magnesium Sulfate 40gm/1000ml) 40 gm in 1,000 mls @ 25 mls/ hr IV TITR CHRISTIANA PRN Reason: 1 GM/HR Stop: 02/22/17 16:59 Last Admin: 02/21/17 20:17 Dose: 1 gm/hr, 25 mls/hr Review of Systems All systems: negative - Vital Signs Vital signs: Vital Signs Temp Pulse Resp BP 98.5 F 78 18 141/91 02/21/17 17:15 02/21/17 17:15 02/21/17 17:15 02/21/17 17:15 Temp Pulse Resp BP Pulse Ox 98.6 F 64 16 138/84 02/21/17 19:15 02/21/17 19:15 02/21/17 19:15 02/21/17 19:15 - Physical Exam Breasts: Positive: deferred Cardiovascular: Regular rate Lungs: Positive: Clear to auscultation Abdomen: Positive: soft (obese) Extremities: Positive: normal Results Result Diagrams: 02/21/17 18:35 02/21/17 18:35 Abnormal lab results 02/21/17 02/21/17 Range/Units 18:35 18:35 MCV 76 L (79-97) fl MCH 24 L (28-32) pg RDW 15.4 H (13.2-15.2) % Creatinine 0.6 L (0.7-1.2) mg/dL All other labs normal. Assessment and Plan A: preeclampsia Obesity P: Admit for observation. Magnesium sulfate for seizure prophylaxis. PIH labs. Initiate antihypertensive therapy if blood pressures consistently over 160/ 110.
[2017-02-22] MEDS: LACTATED RINGERS 1,000 ML IV SCH ×2 (05:00→13:00)
--- NOTE | 2017-02-22 11:58 | Progress Note ---
Assessment and Plan A: preeclampsia doing well receiving magnesium sulfate for seizure prophylaxis P: Continue magnesium for 24 hours (until 5 pm) then discharge pt home with follow up next Monday February 27, 2017. Subjective - Subjective Date of service: 02/22/17 Principal diagnosis: preeclampsia Interval history: Headache has resolved. No overnight events. Patient reports: appetite normal, no voiding normally (delong in place ), no ambulating normally (SCDs in place) Objective - Vital Signs Latest vital signs: Vital Signs Temp Pulse Resp BP 02/22/17 11:00 97.7 F 76 16 96/54 02/22/17 09:00 97.4 F L 78 18 123/65 02/22/17 04:00 98.6 F 81 16 133/74 02/22/17 00:00 98.6 F 86 16 129/74 02/21/17 20:17 78 16 139/82 02/21/17 19:15 98.6 F 64 16 138/84 02/21/17 17:15 98.5 F 78 18 141/91 Intake and Output 02/21/17 02/22/17 02/22/17 22:59 06:59 14:59 Intake Total 1400 240 Output Total 800 2000 Balance -800 -600 240 Intake: IV 1000 Lactated Ringers 1,000 ml 1000 @ 125 mls/hr IV DIRECT CHRISTIANA Rx#:[id number] Oral 240 Intake, Free Water 400 Output: Urine 800 2000 Indwelling 200 Indwelling Catheter 600 2000 Other: Total, Intake Amount 240 Total, Output Amount 600 800 Voiding Method Indwelling Catheter Indwelling Catheter Weight 100.062 kg - Exam Breasts: Present: deferred Cardiovascular: Present: Regular rate Lungs: Present: Clear to auscultation Abdomen: Present: soft (obese). Absent: tenderness Extremities: Present: normal (SCDs in place ) - Labs Labs: Abnormal lab results 02/21/17 02/21/17 02/21/17 Range/Units 18:35 18:35 23:18 MCV 76 L (79-97) fl MCH 24 L (28-32) pg RDW 15.4 H (13.2-15.2) % Creatinine 0.6 L (0.7-1.2) mg/dL Magnesium 2.8 H (1.7-2.3) mg/dL 02/22/17 Range/Units 07:02 MCV (79-97) fl MCH (28-32) pg RDW (13.2-15.2) % Creatinine (0.7-1.2) mg/dL Magnesium 3.3 H (1.7-2.3) mg/dL
--- NOTE | 2017-02-22 12:01 | Discharge Summary ---
Providers - Providers Date of Admission: 02/21/17 16:38 Date of discharge: 02/22/17 Attending physician: LUPE GOOD Primary care physician: [employer]ACHINE [employer] Hospitalization Reason for admission: other ( preeclampsia ) Procedure details: Magnesium Sulfate administration for seizure prophylaxis Discharge diagnosis: other ( preeclampsia, Obesity ) Hospital course: Pt was been admitted for magnesium sulfate administration and blood pressure observation. She met discharge criteria on HD#1. She will follow up in the office on 02/27/17 Condition at discharge: Stable Disposition: DISCHARGED TO HOME OR SELFCARE - Discharge Diagnoses (1) Preeclampsia in period Status: Acute (2) Obesity affecting Status: Acute Plan - Provider Discharge Summary Activity: routine Diet: routine Instructions: routine Additional instructions: [] Smoking cessation referral if applicable(refer to patient education folder for contact #) [] Refer to [facility] Booklet Call your doctor immediately for: * Fever > 100.5 * Heavy vaginal bleeding ( >1 pad per hour) * Severe persistent headache * Shortness of breath * Reddened, hot, painful area to leg or breast * Drainage or odor from incision. * Keep incision clean and dry at all times and follow doctor's instructions regarding bathing/showering - Follow up plan Follow up: CHE ESPINOZA MD [Primary Care Provider] - 7 Days LUPE GOOD MD [Staff Physician] - 02/27/17 ( exam, blood pressure check. Please call to schedule appt. )
[2017-02-22 18:22] VITALS: BP 122/78
== END 2017-02-22 21:28 | disposition home or self-care (01) | DRG 776 ==
LOC: UNDOADMOB 13:58 → 3A 13:58 → OB 16:38 → OBSVTOIN 02-22 09:12
PROVIDERS: ADMIT Obstetrics & Gynecology; ATTEND Obstetrics & Gynecology
DX: O14.95 Unspecified pre-eclampsia, complicating the puerperium (principal); O99.215 Obesity complicating the puerperium; E66.9 Obesity, unspecified; Z68.36 Body mass index [BMI] 36.0-36.9, adult; O24.439 Gestational diabetes mellitus in the puerperium, unspecified control; O90.89 Other complications of the puerperium, not elsewhere classified; E78.00 Pure hypercholesterolemia, unspecified; O99.53 Diseases of the respiratory system complicating the puerperium; J45.909 Unspecified asthma, uncomplicated; Z83.3 Family history of diabetes mellitus; Z82.49 Family history of ischemic heart disease and other diseases of the circulatory system; Z80.9 Family history of malignant neoplasm, unspecified
CPT/HCPCS: 36415; 81001; 82565; 83615; 83735; 84450; 84460; 84550; 85027; G0378; G0379; J0610; J3475; J7120